=== PATIENT | female | born 1975 | race Caucasian/White ===

== ENCOUNTER 2016-05-25 12:09 | Emergency (ER) | payer MEDICARE, OTHER ==
--- NOTE | 2016-05-25 13:46 | ED NURSING NOTES ---
Clinical Report - Nurses Merged With [facility] [address] [place] [address] 05/25/2016 12:09 Patient: KAMILLA HORAN TRIAGE Triage time 12:56 May 25 2016. Acuity: LEVEL 3. Chief Complaint: INJURY TO HAND. INJURY TO THE RIGHT MIDDLE FINGER. Alert. VADIM COMA SCORE: [place] Coma Scale: 15- eyes open spontaneously (4); best verbal response- oriented x 4 (5); best motor response- obeys commands (6). --13:05 Chao Carrasco R.N. 12:56 05/25/16. BP: 138/88. HR: 86. RR: 16. O2 saturation: 93% on room air. Temp: 99.1 F. Pain level now: 3/10. Additional comments: R ring finger. --13:05 Chao Carrasco R.N. Weight: 63.5 kg stated. Height/Length: 67 inches Per Patient. BMI: 21.9. --12:58 Chao Carrasco R.N. Medications Levothyroxine Sodium Oral 100 mcg, daily. --13:02 Chao Carrasco R.N. Depo-Provera Intramuscular. --13:04 Chao Carrasco R.N. Allergies No Known Drug Allergy. --13:02 Chao Carrasco R.N. Medication/allergy information source: the patient. --13:05 Chao Carrasco R.N. History Arrived by private vehicle. Historian: patient. Accompanied by family. Primary physician (Katie Rossi). ( GLF a week ago and injured (R) ring Finger). Mechanism of injury: fell and a blow. Treatment FWS FACULTY ASSISTANT: None. PAST MEDICAL HX: Last normal menstrual period- about 20 years ago. Denies current . SOCIAL HX: Heavy tobacco smoker (cigarette)- less than 1 pack per day. No alcohol use or drug use. No infectious disease exposure. ABUSE ASSESSMENT: No report of abuse. FALL RISK ASSESSMENT: Fall risk assessment completed. No fall risk identified. NUTRITIONAL RISK ASSESSMENT: The nutritional risk assessment revealed no deficiencies. FUNCTIONAL ASSESSMENT: Functional assessment: no impairments noted. LEARNING NEEDS ASSESSMENT: The learning needs assessment revealed no barriers. SKIN INTEGRITY ASSESSMENT: Skin integrity risk assessment completed. No skin integrity risk identified. --13:05 Chao Carrasco R.N. PROBLEMS: Impacted Cerumen. Fall. Head Injury. Hypothyroidism. Brain Tumor. --13:03 Chao Carrasco R.N. ADDITIONAL SURGERIES: Brain surgery. Ear Surgery. --13:04 Chao Carrasco R.N. Interventions ID band on patient. To treatment room. --13:05 Chao Carrasco R.N. PHYSICAL ASSESSMENT 13:23 05/25/16. To room via wheelchair. GENERAL / NEURO / PSYCH: Oriented X 4. Alert. Appears in no acute distress. SKIN: Skin intact. Skin is warm and dry. ( right ring finger swollen, bruising noted). --13:23 Caitlin Odom R.N. NURSING PROGRESS NOTES The patient is calm. Overall patient status is the same- she states feels the same. GENERAL / NEURO / PSYCH: Alert. Oriented X 4. RESPIRATORY: No respiratory distress. SKIN: Skin is warm and dry. --13:25 Caitlin Odom R.N. 13:23 05/25/16. BP: 137/91. HR: 84. RR: 18. O2 saturation: 96% on room air. Pain level now: 06/26. --13:25 Caitlin Odom R.N. ( mother was upset for the wait, wheeled out her daughter in a w/c. PA informed and asked them to wait, they refused.). --13:48 Candace Eaton R.N. DISPOSITION / DISCHARGE The patient left the Emergency Department without completion of treatment; (eloped). The patient appears to be alert, coherent and in no acute distress. She notified the ED staff prior to leaving the department and stated is leaving the ED due to personal reasons (ride is here). She left the Emergency Department in a wheelchair. The patient eloped. --13:47 Candace Eaton R.N. Locked/Released at 05/25/2016 18:51 by Candace Eaton R.N.
--- NOTE | 2016-05-25 13:46 | ED ORDER SUMMARY ---
..... Patient: KAMILLA HORAN OrderSheet [facility] VisitID: [id number] [address] [place] [address] 40y, F Registration Date/Time: 05/25/2016 ORDER SHEET Weight: 63.5 kg (stated) Allergies: No Known Drug Allergy GENERAL ORDERS: Hand 3 or 4V Right Urgent (13:05 05/25/2016 Naeem Haskins verbal order read back to Magdalena BANG) (Ack 13:08 LNations ER Tech1) MEDICATION ORDERS: IV FLUIDS: ORDER SHEET NOTES: [Electronically signed by Caryl Condon P.A.-C (14:32 05/25/2016)] [Electronically signed by Candace Eaton R.N. (18:51 05/25/2016)] [Electronically locked/signed by Candace Eaton R.N. (18:51 05/25/2016)]
--- NOTE | 2016-05-25 13:46 | ED ORDER SUMMARY ---
..... Patient: KAMILLA HORAN OrderSheet [facility] VisitID: [id number] [address] [place] [address] 40y, F Registration Date/Time: 05/25/2016 ORDER SHEET Weight: 63.5 kg (stated) Allergies: No Known Drug Allergy GENERAL ORDERS: Hand 3 or 4V Right Urgent (13:05 05/25/2016 Naeem Haskins verbal order read back to Magdalena BANG) (Ack 13:08 LNations ER Tech1) MEDICATION ORDERS: IV FLUIDS: ORDER SHEET NOTES: [Electronically signed by Caryl Condon P.A.-C (14:32 05/25/2016)] [Electronically signed by Candace Eaton R.N. (18:51 05/25/2016)] [Electronically locked/signed by Candace Eaton R.N. (18:51 05/25/2016)]
--- NOTE | 2016-05-25 13:46 | ED NURSING NOTES ---
Clinical Report - Nurses [facility] [address] [place] [address] 05/25/2016 12:09 Patient: KAMILLA HORAN TRIAGE Triage time 12:56 May 25 2016. Acuity: LEVEL 3. Chief Complaint: INJURY TO HAND. INJURY TO THE RIGHT MIDDLE FINGER. Alert. VADIM COMA SCORE: [place] Coma Scale: 15- eyes open spontaneously (4); best verbal response- oriented x 4 (5); best motor response- obeys commands (6). --13:05 Chao Carrasco R.N. 12:56 05/25/16. BP: 138/88. HR: 86. RR: 16. O2 saturation: 93% on room air. Temp: 99.1 F. Pain level now: 3/10. Additional comments: R ring finger. --13:05 Chao Carrasco R.N. Weight: 63.5 kg stated. Height/Length: 67 inches Per Patient. BMI: 21.9. --12:58 Chao Carrasco R.N. Medications Levothyroxine Sodium Oral 100 mcg, daily. --13:02 Chao Carrasco R.N. Depo-Provera Intramuscular. --13:04 Chao Carrasco R.N. Allergies No Known Drug Allergy. --13:02 Chao Carrasco R.N. Medication/allergy information source: the patient. --13:05 Chao Carrasco R.N. History Arrived by private vehicle. Historian: patient. Accompanied by family. Primary physician (Katie Rossi). ( GLF a week ago and injured (R) ring Finger). Mechanism of injury: fell and a blow. Treatment NATURE PHOTOGRAPHER: None. PAST MEDICAL HX: Last normal menstrual period- about 20 years ago. Denies current . SOCIAL HX: Heavy tobacco smoker (cigarette)- less than 1 pack per day. No alcohol use or drug use. No infectious disease exposure. ABUSE ASSESSMENT: No report of abuse. FALL RISK ASSESSMENT: Fall risk assessment completed. No fall risk identified. NUTRITIONAL RISK ASSESSMENT: The nutritional risk assessment revealed no deficiencies. FUNCTIONAL ASSESSMENT: Functional assessment: no impairments noted. LEARNING NEEDS ASSESSMENT: The learning needs assessment revealed no barriers. SKIN INTEGRITY ASSESSMENT: Skin integrity risk assessment completed. No skin integrity risk identified. --13:05 Chao Carrasco R.N. PROBLEMS: Impacted Cerumen. Fall. Head Injury. Hypothyroidism. Brain Tumor. --13:03 Chao Carrasco R.N. ADDITIONAL SURGERIES: Brain surgery. Ear Surgery. --13:04 Chao Carrasco R.N. Interventions ID band on patient. To treatment room. --13:05 Chao Carrasco R.N. PHYSICAL ASSESSMENT 13:23 05/25/16. To room via wheelchair. GENERAL / NEURO / PSYCH: Oriented X 4. Alert. Appears in no acute distress. SKIN: Skin intact. Skin is warm and dry. ( right ring finger swollen, bruising noted). --13:23 Caitlin Odom R.N. NURSING PROGRESS NOTES The patient is calm. Overall patient status is the same- she states feels the same. GENERAL / NEURO / PSYCH: Alert. Oriented X 4. RESPIRATORY: No respiratory distress. SKIN: Skin is warm and dry. --13:25 Caitlin Odom R.N. 13:23 05/25/16. BP: 137/91. HR: 84. RR: 18. O2 saturation: 96% on room air. Pain level now: 06/26. --13:25 Caitlin Odom R.N. ( mother was upset for the wait, wheeled out her daughter in a w/c. PA informed and asked them to wait, they refused.). --13:48 Candace Eaton R.N. DISPOSITION / DISCHARGE The patient left the Emergency Department without completion of treatment; (eloped). The patient appears to be alert, coherent and in no acute distress. She notified the ED staff prior to leaving the department and stated is leaving the ED due to personal reasons (ride is here). She left the Emergency Department in a wheelchair. The patient eloped. --13:47 Candace Eaton R.N. Locked/Released at 05/25/2016 18:51 by Candace Eaton R.N.
--- NOTE | 2016-05-25 14:16 | DIAGNOSTIC IMAGING REPORT ---
PROCEDURE: XR HAND 3 OR 4 VIEWS - RIGHT INDICATION: TRAUMA/INJURY TECHNIQUE: Four views. COMPARISON: None. FINDINGS: Fracture involving the base of the middle phalanx of the fourth digit. Best seen on the lateral view. Minimal displacement. IMPRESSION: 1. Fracture involving the base the middle phalanx of fourth digit. 2. Results were called to Dr. Sheth at 02:00 p.m.
--- NOTE | 2016-05-25 14:32 | ED CLINICAL REPORT ---
Clinical Report - Physicians/Mid Levels [facility] [address] [place] [address] 05/25/2016 12:09 Patient: KAMILLA HORAN Time Seen: 13:47 May 25 2016. Arrived- By private vehicle. Historian- patient (mom (caregiver of pt)). HISTORY OF PRESENT ILLNESS Chief Complaint: Injury to the right ring finger. 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 She sustained a direct blow. Patient denies injury to the head or neck. No other injury. ( unclear of how injured, however was during a ground level fall almost 7 days prior, may have jammed digit. Reports pain mild, swelling has persisted. Pain with movement.). REVIEW OF SYSTEMS No tingling or numbness. All systems otherwise negative, except as recorded above. PAST HISTORY pt ambulates primarily via wheelchair/ sometimes via walker. The patient's dominant hand is the right. She has not had a prior injury to the same area. Problems: Impacted Cerumen. Fall. Laceration. Head Injury. Immunizations. LNMP - Last Normal Menstrual Period. Tetanus Status. Hypothyroidism. Brain Tumor. Additional Surgeries: Brain surgery. Ear Surgery. Medications: Depo-Provera Intramuscular. Levothyroxine Sodium Oral 100 mcg, daily. Allergies: No Known Drug Allergy. SOCIAL HISTORY Smoker- current status unknown. No alcohol use or drug use. ADDITIONAL NOTES The nursing notes have been reviewed. PHYSICAL EXAM Vital Signs: 05/25/2016 12:56 BP: 138/88. HR: 86. RR: 16. O2 saturation: 93%. Temp: 99.1 F. Pain level now: 3/10. Appearance: Alert. No acute distress. Head: Head atraumatic. ENT: Ears normal. Nose normal. CVS: Normal heart rate and rhythm. Heart sounds normal. Respiratory: No respiratory distress. Breath sounds normal. No decreased air movement or chest wall injury. Abdomen: No visible injury. Soft. Back: No tenderness. Normal inspection. No vertebral point tenderness. Skin: Skin warm. Skin intact. Extremities: Right hand web space. No tenderness or swelling. Right ring finger: mild tenderness and swelling and small ecchymosis of the PIP joint; limited movement secondary to pain and swelling (diminished flexion). No laceration, puncture wound or foreign body. No subungual hematoma or amputation present. Tip of right ring finger: No tenderness or swelling. No wrist injury. No hand injury. Neuro, Vascular and Tendons: Vascular status intact. No pulse deficit present. Motor intact. Tendon function intact. Neuro: Oriented X 3. LABS, X-RAYS, AND EKG Rt Hand X-ray: (IMPRESSION: 1. Fracture involving the base the middle phalanx of fourth digit. 2. Results were called to Dr. Sheth at 02:00 p.m. Electronically Final signed by:Gio Perez MD 05/25/2016 2:20:06 PM). PROGRESS AND PROCEDURES Course of Care: Patient here with mom,who after waiting for 1-1/2 hours, eloped after x-ray. X-ray was not interpreted by me at the time, mom and patient were at the door leaving by wheelchair, when I asked if they wanted to know the results of the x-ray, and they reported they needed to leave, as family was in the parking lot, and they had waited for to long. They reported to call if any new information was obtained from x-ray. Fracture, R. 4th digit, where swelling/ consistent with injury, good distal sensation and rom . WIll offer splint / allumina-foam to R. 4th digit if patient returns. May do so in triage. If patient returns on 05/25/2016 patient discharge instructions if desired are printed at my desk. ELOPED. Patient is stable. Patient/family counseled. Disposition: ( ELOPED). CLINICAL IMPRESSION Middle phalanx fracture of the ring finger. INSTRUCTIONS Apply ice. Limit use of your right hand for two weeks. ([facility] [phone]). OTC Medications: Take OTC medications according to label instructions. Available over the counter. Acetaminophen (available over the counter): take according to label instructions. Motrin (available over the counter): take according to label instructions. Follow-up: Follow up with a specialist. (Electronically signed by Caryl Condon P.A.-C 05/25/2016 14:32) Addenda for KAMILLA HORAN VisitID: [id number] Date: 05/25/2016 05/25/2016 14:58 Called pt at [phone] to return to the ER for a Allum-Spint at anytime today. Left a message. CÉSAR Chandler aware and requested the call. (Electronically signed by Candace Eaton R.N. - 05/25/2016 14:58)
--- NOTE | 2016-05-25 14:32 | ED CLINICAL REPORT ---
Clinical Report - Physicians/Mid Levels [facility] [address] [place] [address] 05/25/2016 12:09 Patient: KAMILLA HORAN Time Seen: 13:47 May 25 2016. Arrived- By private vehicle. Historian- patient (mom (caregiver of pt)). HISTORY OF PRESENT ILLNESS Chief Complaint: Injury to the right ring finger. 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 She sustained a direct blow. Patient denies injury to the head or neck. No other injury. ( unclear of how injured, however was during a ground level fall almost 7 days prior, may have jammed digit. Reports pain mild, swelling has persisted. Pain with movement.). REVIEW OF SYSTEMS No tingling or numbness. All systems otherwise negative, except as recorded above. PAST HISTORY pt ambulates primarily via wheelchair/ sometimes via walker. The patient's dominant hand is the right. She has not had a prior injury to the same area. Problems: Impacted Cerumen. Fall. Laceration. Head Injury. Immunizations. LNMP - Last Normal Menstrual Period. Tetanus Status. Hypothyroidism. Brain Tumor. Additional Surgeries: Brain surgery. Ear Surgery. Medications: Depo-Provera Intramuscular. Levothyroxine Sodium Oral 100 mcg, daily. Allergies: No Known Drug Allergy. SOCIAL HISTORY Smoker- current status unknown. No alcohol use or drug use. ADDITIONAL NOTES The nursing notes have been reviewed. PHYSICAL EXAM Vital Signs: 05/25/2016 12:56 BP: 138/88. HR: 86. RR: 16. O2 saturation: 93%. Temp: 99.1 F. Pain level now: 3/10. Appearance: Alert. No acute distress. Head: Head atraumatic. ENT: Ears normal. Nose normal. CVS: Normal heart rate and rhythm. Heart sounds normal. Respiratory: No respiratory distress. Breath sounds normal. No decreased air movement or chest wall injury. Abdomen: No visible injury. Soft. Back: No tenderness. Normal inspection. No vertebral point tenderness. Skin: Skin warm. Skin intact. Extremities: Right hand web space. No tenderness or swelling. Right ring finger: mild tenderness and swelling and small ecchymosis of the PIP joint; limited movement secondary to pain and swelling (diminished flexion). No laceration, puncture wound or foreign body. No subungual hematoma or amputation present. Tip of right ring finger: No tenderness or swelling. No wrist injury. No hand injury. Neuro, Vascular and Tendons: Vascular status intact. No pulse deficit present. Motor intact. Tendon function intact. Neuro: Oriented X 3. LABS, X-RAYS, AND EKG Rt Hand X-ray: (IMPRESSION: 1. Fracture involving the base the middle phalanx of fourth digit. 2. Results were called to Dr. Sheth at 02:00 p.m. Electronically Final signed by:Gio Perez MD 05/25/2016 2:20:06 PM). PROGRESS AND PROCEDURES Course of Care: Patient here with mom,who after waiting for 1-1/2 hours, eloped after x-ray. X-ray was not interpreted by me at the time, mom and patient were at the door leaving by wheelchair, when I asked if they wanted to know the results of the x-ray, and they reported they needed to leave, as family was in the parking lot, and they had waited for to long. They reported to call if any new information was obtained from x-ray. Fracture, R. 4th digit, where swelling/ consistent with injury, good distal sensation and rom . WIll offer splint / allumina-foam to R. 4th digit if patient returns. May do so in triage. If patient returns on 05/25/2016 patient discharge instructions if desired are printed at my desk. ELOPED. Patient is stable. Patient/family counseled. Disposition: ( ELOPED). CLINICAL IMPRESSION Middle phalanx fracture of the ring finger. INSTRUCTIONS Apply ice. Limit use of your right hand for two weeks. ([facility] [phone]). OTC Medications: Take OTC medications according to label instructions. Available over the counter. Acetaminophen (available over the counter): take according to label instructions. Motrin (available over the counter): take according to label instructions. Follow-up: Follow up with a specialist. (Electronically signed by Caryl Condon P.A.-C 05/25/2016 14:32) Addenda for KAMILLA HORAN VisitID: [id number] Date: 05/25/2016 05/25/2016 14:58 Called pt at [phone] to return to the ER for a Allum-Spint at anytime today. Left a message. CÉSAR Chandler aware and requested the call. (Electronically signed by Candace Eaton R.N. - 05/25/2016 14:58)
--- NOTE | 2016-05-25 18:51 | ED MED RECONCILIATION SUMMARY ---
Patient: KAMILLA HORAN Medication Reconciliation Report [facility] VisitID: [id number] [address] [place] [address] 40y, F Registration Date/Time: 05/25/2016 Weight: 63.5 kg Height/Length: 67 in. BMI: 21.9 ALLERGIES: No Known Drug Allergy The patient's Home Medications are listed below: THE FOLLOWING MEDICATIONS NEED TO BE RECONCILED: Depo-Provera Intramuscular Levothyroxine Sodium Oral 100 mcg, daily The source(s) of the original Home Medication information: patient The following Medications were given to the patient in the Emergency Department: None. The following Medications were prescribed to the patient: Take OTC medications according to label instructions. Available over the counter. -- Caryl Condon, P.A.-C Acetaminophen (available over the counter): take according to label instructions. -- Caryl Condon, P.A.-C Motrin (available over the counter): take according to label instructions. -- Caryl Condon, P.A.-C
--- NOTE | 2016-05-25 18:51 | ED MED RECONCILIATION SUMMARY ---
Patient: KAMILLA HORAN Medication Reconciliation Report [facility] VisitID: [id number] [address] [place] [address] 40y, F Registration Date/Time: 05/25/2016 Weight: 63.5 kg Height/Length: 67 in. BMI: 21.9 ALLERGIES: No Known Drug Allergy The patient's Home Medications are listed below: THE FOLLOWING MEDICATIONS NEED TO BE RECONCILED: Depo-Provera Intramuscular Levothyroxine Sodium Oral 100 mcg, daily The source(s) of the original Home Medication information: patient The following Medications were given to the patient in the Emergency Department: None. The following Medications were prescribed to the patient: Take OTC medications according to label instructions. Available over the counter. -- Caryl Condon, P.A.-C Acetaminophen (available over the counter): take according to label instructions. -- Caryl Condon, P.A.-C Motrin (available over the counter): take according to label instructions. -- Caryl Condon, P.A.-C
--- NOTE | 2016-05-25 18:51 | ED MAR SUMMARY ---
..... Medication Administration Record [facility] [address] [place], [place] [id number] Patient: KAMILLA HORAN Visit ID: [id number] 40y, F Weight: 63.5 kg Height/Length: 67 in BMI: 21.9 ALLERGIES: No Known Drug Allergy
--- NOTE | 2016-05-25 18:51 | ED MAR SUMMARY ---
..... Medication Administration Record [facility] [address] [place], [place] [id number] Patient: KAMILLA HORAN Visit ID: [id number] 40y, F Weight: 63.5 kg Height/Length: 67 in BMI: 21.9 ALLERGIES: No Known Drug Allergy
--- NOTE | 2016-05-25 18:51 | ED DISCHARGE INSTRUCTIONS ---
Patient: KAMILLA HORAN General Instructions [facility] VisitID: [id number] [place] [address] 40y, F Registration Date/Time: 05/25/2016 Middle phalanx fracture of the ring finger. INSTRUCTIONS Apply ice. Limit use of your right hand for two weeks. (Follow up [facility] [phone]). OTC Medications: Take OTC medications according to label instructions. Available over the counter. Acetaminophen (available over the counter): take according to label instructions. Motrin (available over the counter): take according to label instructions. Follow-up: Follow up with a specialist. ADDITIONAL INFORMATION Fracture: Finger [Closed] You have a fracture of your finger (broken finger). This causes local pain, swelling and bruising. This injury takes about four weeks to heal. Finger injuries are often treated with a splint, cast or by taping the injured finger to the next one ("gisel taping"). This protects the injured finger and holds the bone in position while it heals. More serious fractures may require surgery. If the FINGERNAIL has been severely injured, it will probably fall off in 1-2 weeks. A new fingernail will usually start to grow back within a month. Home Care: 1) Keep your hand elevated to reduce pain and swelling. When sitting or lying down elevate your arm above the level of your heart. You can do this by placing your arm on a pillow that rests on your chest or on a pillow at your side. This is most important during the first 48 hours after injury. 2) Apply an ice pack (ice cubes in a plastic bag, wrapped in a towel) over the injured area for 20 minutes every 1-2 hours the first day for pain relief. Continue this 3-4 times a day until the pain and swelling goes away. 3) Keep the cast/splint completely dry at all times. Bathe with your cast/splint out of the water, protected with a large plastic bag, rubber-banded at the top end. If a fiberglass cast/splint gets wet, you can dry it with a hair-dryer. 4) If gisel tape was applied and it becomes wet or dirty, change it. You may replace it with paper, plastic or cloth tape. Cloth tape and paper tapes must be kept dry. Keep the gisel tape in place for at least four weeks. 5) You may use acetaminophen (Tylenol) or ibuprofen (Motrin, Advil) to control pain, unless another pain medicine was prescribed. [ NOTE : If you have chronic liver or kidney disease or ever had a stomach ulcer or GI bleeding, talk with your doctor before using these medicines.] Follow Up with your doctor within one week, or as advised by our staff, to be sure the bone is healing properly, . [NOTE: A radiologist will review any X-rays that were taken. We will notify you of any new findings that may affect your care.] Get Prompt Medical Attention if any of the following occur: -- The plaster cast or splint becomes wet or soft -- The fiberglass cast or splint remains wet for more than 24 hours -- Pain or swelling increases -- Redness, warmth, swelling, drainage from the wound or foul odor from a cast or splint -- Finger becomes more cold, blue, numb or tingly You have been given the following additional information: Fracture, Finger (Closed) Limit use of your right hand for two weeks. (Electronically signed by Caryl Condon P.A.-C 05/25/2016 14:32)
== END 2016-05-25 13:47 | disposition home or self-care (01) ==
LOC: ED SRH 12:09
DX: S62.614A Displaced fracture of proximal phalanx of right ring finger, initial encounter for closed fracture (principal); W18.30XA Fall on same level, unspecified, initial encounter; Y93.9 Activity, unspecified; Y92.9 Unspecified place or not applicable; Y99.9 Unspecified external cause status; E03.9 Hypothyroidism, unspecified; F17.210 Nicotine dependence, cigarettes, uncomplicated